=== PATIENT | female | born 1955 | race American Indian/Alaskan Native ===

== ENCOUNTER 2016-11-05 10:57 | Emergency (ER) | payer MEDICAID ==
[2016-11-05 11:08] VITALS: BP 119/75
[2016-11-05 12:05] LABS: Bilirubin,Urine NEG (Negative); Blood,Urine NEG (Negative); Ketones,Urine NEG (Negative); Leukocyte Esterase,Urine SM (Negative); Nitrite,Urine NEG (Negative); Protein,Urine <15 mg/dL mg/dL (Negative); Urobilinogen,Urine < 2.0 mg/dL (<2.0)
[2016-11-05 12:21] LABS: Basophils % (Auto) 0.9 % (0.0-1.8); Eosinophils % (Auto) 2.2 % (0.0-4.3); Hematocrit 39.3 % (30.3-42.9); Mean Corpuscular HGB Conc 33 % (30-34); Mean Corpuscular Hemoglobin 31 pg (28-32); Mean Corpuscular Volume 94 fl (79-97); Platelet Count 299 K/mm3 (140-440); Red Blood Count 4.18 M/mm3 (3.65-5.03); Red Cell Distribution Width 13.4 % (13.2-15.2); White Blood Count 7.1 K/mm3 (4.5-11.0)
[2016-11-05 12:38] LABS: Albumin 4.1 g/dL (3.9-5); BUN/Creatinine Ratio 8.46; Bilirubin,Total 0.2 mg/dL (0.1-1.2); Calcium 9.8 mg/dL (8.4-10.2); Chloride 100.7 mmol/L (98-107); Potassium 4.9 mmol/L (3.6-5.0); Total Protein 8.1 g/dL (6.3-8.2)
[2016-11-05 13:20] LABS: Lipase 75 units/L (13-60)
[2016-11-05 13:38] LABS: Amylase 319 units/L (27-131)
--- NOTE | 2016-11-05 13:40 | Cat Scan Report ---
CT scan of abdomen and pelvis without IV contrast: History: Left sided kidney stone. Findings: Normal lung bases. No pleural pericardial effusion. Patient status post cholecystectomy. Normal pancreas. Normal liver. Normal spleen. Normal adrenals. No calculi right kidney. 2 mm nonobstructing calculus left kidney .No calculi the ureter. No evidence of hydronephrosis. Normal bladder. No free intraperitoneal fluid or air. No evidence of adenopathy. Gaseous colon with stool in colon. No evidence of appendicitis or diverticulitis. Impression: 2 mm nonobstructing calculus left kidney.
--- NOTE | 2016-11-05 14:06 | Emergency Department Report ---
ED Abdominal Pain HPI - General Chief Complaint: Abdominal Pain Stated Complaint: LEFT FLANK PAIN Time Seen by Provider: 11/05/16 11:48 Source: patient Mode of arrival: Ambulatory Limitations: No Limitations - History of Present Illness Initial Comments: 61 y/o female with PMHx of hyperlipidemia, kidney stones, HTN, HIV, GERD, CVA, and arthritis presents with complaint of left flank pain since yesterday. Patient denies any fevers chills nausea vomiting no dysuria no hematuria. Denies any increased urinary frequency denies any chest pain shortness of breath or palpitations. States that pain is intermittent and on left side denies any rash on flank or abdomen. Patient is awake alert and oriented 3 not in acute distress accompanied by a family member she states helps her with her personal issues. Patient is nontoxic-appearing on exam. Denies any smoking , alcohol or drug abuse. MD Complaint: flank pain Onset/Timin -: days(s) Location: L flank Severity: mild Severity scale (0 -10): 6 Quality: aching - Related Data Previous Rx's Medication Instructions Recorded Last Taken Type Ondansetron [Zofran TAB] 4 mg PO Q8HR PRN #20 tablet 08/07/15 Unknown Rx Acetaminophen [Acetaminophen TAB] 500 mg PO Q8H PRN #1 bottle 11/05/16 Unknown Rx Famotidine [Pepcid] 20 mg PO BID PRN #1 bottle 11/05/16 Unknown Rx Lansoprazole [Prevacid] 30 mg PO QDAY #1 pack 11/05/16 Unknown Rx Allergies Allergy/AdvReac Type Severity Reaction Status Date / Time Penicillins AdvReac Rash Verified 08/07/15 11:15 Sulfa (Sulfonamide AdvReac Nausea Verified 08/07/15 11:15 Antibiotics) ED Review of Systems ROS: Stated complaint: LEFT FLANK PAIN Other details as noted in HPI Constitutional: denies: chills, fever Eyes: denies: eye pain, eye discharge, vision change ENT: denies: ear pain, throat pain Respiratory: denies: cough, shortness of breath, wheezing Cardiovascular: denies: chest pain, palpitations Endocrine: no symptoms reported Gastrointestinal: denies: abdominal pain, nausea, diarrhea Genitourinary: denies: urgency, dysuria, discharge Musculoskeletal: denies: back pain, joint swelling, arthralgia Skin: denies: rash, lesions Neurological: denies: headache, weakness, paresthesias Psychiatric: denies: anxiety, depression Hematological/Lymphatic: denies: easy bleeding, easy bruising ED Past Medical Hx - Past Medical History Previous Medical History?: Yes Hx Hypertension: Yes Hx CVA: Yes Hx GERD: Yes Hx Arthritis: Yes Hx Kidney Stones: Yes Hx HIV: Yes Additional medical history: HIGH CHOLESTEROL - Surgical History Past Surgical History?: Yes Hx Breast Surgery: Yes (LEFT BREAST) Additional Surgical History: X 3. HYSTERECTOMY - Social History Smoking Status: Current Every Day Smoker Substance Use Type: Prescribed - Medications Home Medications: Home Medications Medication Instructions Recorded Confirmed Last Taken Type Ondansetron [Zofran TAB] 4 mg PO Q8HR PRN #20 tablet 08/07/15 Unknown Rx Acetaminophen [Acetaminophen TAB] 500 mg PO Q8H PRN #1 bottle 11/05/16 Unknown Rx Famotidine [Pepcid] 20 mg PO BID PRN #1 bottle 11/05/16 Unknown Rx Lansoprazole [Prevacid] 30 mg PO QDAY #1 pack 11/05/16 Unknown Rx ED Physical Exam - General Limitations: No Limitations General appearance: alert, in no apparent distress - Head Head exam: Present: atraumatic, normocephalic - Eye Eye exam: Present: normal appearance, PERRL, EOMI - ENT ENT exam: Present: mucous membranes moist - Neck Neck exam: Present: normal inspection, full ROM - Respiratory Respiratory exam: Present: normal lung sounds bilaterally. Absent: respiratory distress - Cardiovascular Cardiovascular Exam: Present: regular rate, normal rhythm. Absent: systolic murmur, diastolic murmur, rubs, gallop - GI/Abdominal GI/Abdominal exam: Present: tenderness (mild left upper quadrant/left flank discomfort on palpation), normal bowel sounds - Extremities Exam Extremities exam: Present: normal inspection, full ROM - Back Exam Back exam: Present: normal inspection - Neurological Exam Neurological exam: Present: alert, oriented X3, CN II-XII intact, normal gait - Psychiatric Psychiatric exam: Present: normal affect, normal mood - Skin Skin exam: Present: warm, dry, intact, normal color. Absent: rash ED Course Vital Signs 11/05/16 11/05/16 11:04 12:35 Temperature 98.7 F Pulse Rate 82 Respiratory 20 16 Rate Blood Pressure 119/75 O2 Sat by Pulse 99 98 Oximetry ED Medical Decision Making - Lab Data Result diagrams: 11/05/16 12:01 11/05/16 12:01 - Medical Decision Making A/P: Left flank/left upper abdominal pain 1-case discussed with Dr. House 2-CT shows 2 mm nonobstructing stone no other abnormalities, only slight elevation in amylase and lipase in context of patient having no nausea vomiting fever or chills with otherwise unremarkable CT report highly unlikely to be clinical pancreatitis. No signs of rash or shingles on external exam, no pleuritic component pain 3-patient does say that she uses NSAIDs frequently and does have pain and left stomach region, possible gastritis or possible underlying gastric ulcer. Patient states she followed up with GI years ago had a colonoscopy but has not had a endoscopy 4-referred to [facility] 5-Prevacid, Pepcid, Tylenol when necessary 6-advised patient to return to the ED if she develops fevers chills nausea vomiting or any chest pain or shortness of breath Critical care attestation.: If time is entered above; I have spent that time in minutes in the direct care of this critically ill patient, excluding procedure time. ED Disposition Clinical Impression: Left flank pain Disposition: DC-01 TO HOME OR SELFCARE Is pt being admited?: No Does the pt Need Aspirin: No Condition: Stable Instructions: Abdominal Pain (ED), Peptic Ulcer (ED), Gastritis (ED), Diet for Ulcers and Gastritis (ED), Lansoprazole (By mouth) Prescriptions: Acetaminophen [Acetaminophen TAB] 500 mg PO Q8H PRN #1 bottle PRN Reason: Pain Famotidine [Pepcid] 20 mg PO BID PRN #1 bottle PRN Reason: Indigestion Lansoprazole [Prevacid] 30 mg PO QDAY #1 pack Referrals: [facility] [Provider Group] - 3-5 Days ELISEO LANDRY MD [Staff Physician] - 3-5 Days Forms: Accompanied Note, Work/School Release Form(ED) Time of Disposition: 14:11
[2016-11-05] MEDS ORDERED: TYLENOL PO ONE (14:17)
[2016-11-05] MEDS ORDERED: PEPCID PO ONE (14:17)
--- NOTE | 2016-11-05 16:54 | Emergency Department Report ---
Entered by RINA BUCK, acting as scribe for HEBER JETT PA. Chief Complaint: Abdominal Pain Stated Complaint: LEFT FLANK PAIN Time Seen by Provider: 11/05/16 11:39 - HPI History of Present Illness: 61 y/o female with PMHx of hyperlipidemia, kidney stones, HTN, HIV, GERD, CVA, and arthritis, presents to the ED c/o left flank pain beginning yesterday. The abdominal pain is characterized as sharp and intermittent, 8/10 severity. The symptoms are aggravated by breathing. Patient denies nausea, dysuria, and vomiting. She states she is compliant with prescribed medications. No other complaints. - ROS Review of Systems: BACK: Positive for left flank pain ABD: negative for nausea, vomiting : negative for dysuria All other systems reviewed and negative. - Exam Vital Signs: Vital Signs 11/05/16 11:04 Temperature 98.7 F Pulse Rate 82 Respiratory 20 Rate Blood Pressure 119/75 O2 Sat by Pulse 99 Oximetry Physical Exam: Constitutional: Non toxic appearing, NAD. Cardiovascular: Normal rate and rhythm with normal S1/S2 sounds. Respiratory: No respiratory distress. Lung sounds clear to auscultation bilaterally. Abdomen: Abdomen is non-distended, soft with no tenderness to palpation in all quadrants. BACK: left flank is tender to palpation. No obvious signs of external trauma. CVA tenderness absent. MSE screening note: Focused history and physical exam performed. Due to findings the following was ordered: ED Medical Decision Making - Medical Decision Making Alert and oriented x3. Labs ordered. Patient will be seen by ED physician. No acute distress, patient is stable. ED Disposition for MSE Condition: Stable Instructions: Abdominal Pain (ED) Referrals: PRIMARY CARE,MD [Primary Care Provider] - 3-5 Days This documentation as recorded by the scribe,RINA BUCK,accurately reflects the service I personally performed and the decisions made by ,HEBER JETT PA.
== END 2016-11-05 14:30 | disposition home or self-care (01) ==
LOC: ED 10:57
DX: R10.12 Left upper quadrant pain (principal); I10 Essential (primary) hypertension; K21.9 Gastro-esophageal reflux disease without esophagitis; M19.90 Unspecified osteoarthritis, unspecified site; E78.00 Pure hypercholesterolemia, unspecified; Z98.890 Other specified postprocedural states; F17.200 Nicotine dependence, unspecified, uncomplicated; Z90.710 Acquired absence of both cervix and uterus; Z86.73 Personal history of transient ischemic attack (TIA), and cerebral infarction without residual deficits; Z88.0 Allergy status to penicillin; Z88.2 Allergy status to sulfonamides
CPT/HCPCS: 36415; 74176; 80053; 81001; 82150; 83690; 84703; 85025

== ENCOUNTER 2017-02-27 07:38 | Day surgery (SDC) | payer MEDICAID ==
[2017-02-27] MEDS ORDERED: NACL 0.9% 500 ML 500 ML IV SCH (08:00)
[2017-02-27] MEDS ORDERED: ECOTRIN PO ONE (08:30)
[2017-02-27 08:35] LABS: Basophils % (Auto) 0.6 % (0.0-1.8); Eosinophils % (Auto) 2.3 % (0.0-4.3); Hematocrit 35.9 % (30.3-42.9); Hemoglobin 11.9 gm/dl (10.1-14.3); Mean Corpuscular HGB Conc 33 % (30-34); Mean Corpuscular Hemoglobin 30 pg (28-32); Mean Corpuscular Volume 92 fl (79-97); Platelet Count 325 K/mm3 (140-440); Red Blood Count 3.91 M/mm3 (3.65-5.03); Red Cell Distribution Width 14.6 % (13.2-15.2); White Blood Count 7.3 K/mm3 (4.5-11.0)
[2017-02-27 08:46] LABS: INR 1.02 (0.87-1.13)
[2017-02-27 08:47] LABS: Calcium 9.9 mg/dL (8.4-10.2); Chloride 100.8 mmol/L (98-107); Potassium 4.5 mmol/L (3.6-5.0)
[2017-02-27] MEDS ORDERED: HEPARIN 10,000 UNITS/10 ML ONE (08:55)
[2017-02-27] MEDS ORDERED: HEPARIN/NS 5000 UNIT/500ML(CATH LAB) 1,000 ML IR ONE (08:55)
[2017-02-27] MEDS ORDERED: NITROGLYCERIN SYRINGE 3 ML ONE (08:56)
[2017-02-27] MEDS ORDERED: CALAN ONE (08:56)
[2017-02-27] MEDS: SUBLIMAZE ONE ×2 (09:37→09:42)
[2017-02-27] MEDS: VERSED ONE ×2 (09:37→09:42)
[2017-02-27] MEDS: XYLOCAINE 2% INFILTRATI ONE ×2 (09:38→09:43)
--- NOTE | 2017-02-27 13:18 | Cardiac Catherization Report ---
CARDIAC CATHETERIZATION REFERRING PHYSICIAN: Andrew Romero MD INDICATION FOR PROCEDURE: The patient is a pleasant 61-year-old female with multiple medical problems including hyperlipidemia, hypertension, tobacco abuse, HIV positive, who presented with atypical chest pain, found to have an abnormal stress test, referred for left heart catheterization. Risks, benefits, and potential alternatives explained at length prior to obtaining informed consent. PROCEDURE IN DETAIL: The patient was brought to the laboratory director in a postabsorptive state, prepped and draped in sterile fashion. Jesse's test in right hand was normal. A 2 mL of 2% lidocaine used to anesthetize the right wrist. A standard 6-[place] hydrophilic sheath used to cannulate the right radial artery via modified Seldinger technique. All exchanges performed to exchange a J-tip guidewire. JL3.5 catheter used to engage the left main. No dampening or ventricularization. Cineangiography performed in all projections. JR4 catheter used to cross the aortic valve under fluoroscopic guidance. Left ventriculography performed in 30 BHATT and 30 GERMAN projections via hand injections, catheter flushed. Manual pullback performed with continuous pressure monitoring. Catheter used to engage the right coronary. No dampening or ventricularization. Subselective cineangiography performed in all projections. Next, catheter removed from the body of wire, sheath removed. Manual pressure used to achieve hemostasis. DATA: Aortic pressure is 110/50, LV pressure is 110, LVEDP of 15 mmHg. Left ventriculography revealed normal systolic performance with estimated ejection fraction of 55% to 60%. No evidence of aortic stenosis. CORONARY ANATOMY: This is a codominant system. Right coronary is a very small vessel, probably about maximal diameter. Scattered luminal irregularities, maximal narrowing of 30% to 40% in the mid segment, but very small vessel. The entire coronary tree is small. The left system is also a small left main without significant disease, bifurcates in left anterior descending and left circumflex. Left circumflex is a moderate sized vessel, courses AV groove. Scattered luminal irregularities, but no significant disease. LAD is a small vessel, courses anterior intergroove, wraps around the apex, no significant disease in the LAD or circumflex system. CONCLUSIONS: 1. Mild nonobstructive coronary disease and is codominant system small coronary tree. No obstructive lesions identified. 2. Normal left ventricular systolic performance, estimated ejection fraction of 55% to 60%. 3. No evidence of aortic stenosis. 4. Normal LVEDP. At this point, recommend aggressive risk factor modification. The patient needs to quit smoking. Recommend medical therapy, consider adding Ranexa and/or Imdur. Continue statin therapy. Follow up with Dr. Romero in the office. JOB# [id number] SBM/NTS
[2017-02-27 14:06] VITALS: BP 140/71
== END 2017-02-27 13:35 | disposition home or self-care (01) ==
LOC: CATHLABREC 07:38
PROVIDERS: ATTEND Internal Medicine
DX: I25.10 Atherosclerotic heart disease of native coronary artery without angina pectoris (principal); E78.5 Hyperlipidemia, unspecified; I10 Essential (primary) hypertension; F17.200 Nicotine dependence, unspecified, uncomplicated; Z85.3 Personal history of malignant neoplasm of breast; Z86.73 Personal history of transient ischemic attack (TIA), and cerebral infarction without residual deficits; Z98.890 Other specified postprocedural states; Z79.82 Long term (current) use of aspirin; Z79.899 Other long term (current) drug therapy; Z88.2 Allergy status to sulfonamides; Z82.49 Family history of ischemic heart disease and other diseases of the circulatory system
CPT/HCPCS: 36415; 80048; 85025; 85610; 85730; 93005; 93010; 93458; C1894; J1644; J2250; J3010; J7040; Q9967

== ENCOUNTER 2020-11-03 09:25 | Emergency (ER) | payer MEDICARE ==
--- NOTE | 2020-11-03 09:37 | Event Note ---
Date: 11/03/20 The patient was evaluated in the emergency department for symptoms described in the history of present illness. He/she was evaluated in the context of the global COVID-19 pandemic, which necessitated consideration that the patient might be at risk for infection with the virus that causes COVID-19. Institutional protocols and algorithms that pertain to the evaluation of patients at risk for COVID-19 are in a state of rapid change based on information released by regulatory bodies including the CDC and federal and state organizations. These policies and algorithms were followed during the patient's care in the emergency department. Please note that these policies, procedures and recommendations changed on a rapid basis. Medical screening examination: 65-year-old female, currently on aspirin therapy, edentulous, with reported history of stroke x2, brought to the hospital by emergency medical services with a complaint of facial twisting, concerning for stroke, now resolved. EMS reports patient is negative and [place] stroke scale in the field, and she has a normal Accu-Chek. On my examination, the patient is enunciating clearly, without any aphasia, or dysphagia, with an NIH score of 0, and a GCS of 15. She complains of chronic paralumbar back pain which is nonradiating, but otherwise, has no acute painful complaints at this time. No facial droop. Tongue midline. Extraocular movements intact bilaterally. Facial sensation intact to light touch in V1, V2, V3 distribution bilaterally. 5 and a 5 strength in 4 extremities. Sensation intact to light touch in 4 extremities. Patient does not meet criteria for emergent activation of code stroke at this time, given NIH score of 0, GCS of 15. However, her history, TIA is possible. Therefore, TIA work-up will be ordered. Patient will be brought back to the main emergency room as soon as is feasible. She is currently awake, alert, oriented, protecting her airway, smiling, hemodynamically stable, in good spirits, does not appear to be in any acute distress..
--- NOTE | 2020-11-03 10:20 | Cat Scan Report ---
CT HEAD WITHOUT CONTRAST INDICATION / CLINICAL INFORMATION: History of facial droop, now resolved. TECHNIQUE: Axial imaging performed from the skull apex through the skull base without the use of cont rast. Sagittal and coronal reformatted images. All CT scans at this location are performed using CT dose reduction for ALARA by means of automated exposure control. COMPARISON: None available. FINDINGS: CEREBRAL PARENCHYMA: Mild diffuse cortical volume loss and mild chronic microvascular ischemic change s in the white matter are identified. A large chronic infarct in the in the anterior right MCA distri bution measures up to 5.5 x 3.2 cm. No acute parenchymal abnormality is appreciated. HEMORRHAGE: None. EXTRA-AXIAL SPACES: Normal in size and morphology for the patient's age. VENTRICULAR SYSTEM: Normal in size and morphology for the patient's age. MIDLINE SHIFT OR HERNIATION: None. CEREBELLUM / BRAINSTEM: No significant abnormality. CALVARIUM: No significant abnormality. ORBITS: Normal as visualized. PARANASAL SINUSES / MASTOID AIR CELLS: Normal as visualized. SOFT TISSUES of HEAD: No significant abnormality. ADDITIONAL FINDINGS: None. IMPRESSION: No acute intracranial abnormality. Volume loss and chronic white matter changes. Chronic right MCA in farct as described. Signer Name: Yousif Low Jr, MD Signed: 11/03/2020 10:16 AM Workstation Name: [id number]
[2020-11-03 10:32] VITALS: BP 145/92
[2020-11-03 10:56] LABS: Basophils % (Auto) 0.3 % (0.0-1.8); Eosinophils # (Auto) 0.2 K/mm3 (0.0-0.4); Eosinophils % (Auto) 1.8 % (0.0-4.3); Hematocrit 38.3 % (30.3-42.9); Hemoglobin 12.8 gm/dl (10.1-14.3); Lymphocytes # (Auto) 2.1 K/mm3 (1.2-5.4); Lymphocytes % (Auto) 25.2 % (13.4-35.0); Mean Corpuscular HGB Conc 33 % (30-34); Mean Corpuscular Volume 87 fl (79-97); Monocytes # (Auto) 0.6 K/mm3 (0.0-0.8); Platelet Count 244 K/mm3 (140-440); Red Blood Count 4.42 M/mm3 (3.65-5.03); Red Cell Distribution Width 16.7 % (13.2-15.2)
[2020-11-03 11:11] LABS: INR 0.92 (0.87-1.13); Partial Thromboplastin Time 24.7 Sec. (24.2-36.6)
[2020-11-03 11:12] LABS: Thrombin Time 16.8 Sec. (15.1-19.6)
[2020-11-03 11:25] LABS: Creatine Kinase MB < 1.0 ng/mL (0.0-4.0)
== END 2020-11-03 11:00 | disposition left against medical advice (07) ==
LOC: ED 09:25
DX: Z00.8 Encounter for other general examination (principal); R90.82 White matter disease, unspecified; Z53.21 Procedure and treatment not carried out due to patient leaving prior to being seen by health care provider
CPT/HCPCS: 36415; 70450; 80320; 82550; 82553; 83735; 84443; 84484; 85025; 85610; 85670; 85730; G0480